=== PATIENT | female | born 1955 | race Caucasian/White ===

== ENCOUNTER → 2016-04-24 10:14 | Outpatient (CLI) | payer BC ==
[2016-04-24 12:14] LABS: BASOPHILS 0.3 % (0.0-2.0); EOSINOPHILS 1.5 % (0-7); HEMATOCRIT 43.3 % (36.0-48.0); HEMOGLOBIN 14.4 g/dL (12-16); IMMATURE GRANULOCYTES 0.1 % (0-5); LYMPHOCYTES 29.7 % (15-50); MCH 30.4 pg (26.0-34.0); MCHC 33.3 g/dL (31.0-37.0); MCV 91.4 fL (80.0-100.0); MEAN PLATELET VOLUME 11.5 fL (7.4-10.4); MONOCYTES 9.7 % (2-11); NEUTROPHILS 58.7 % (40-80); PLATELET COUNT 191 10x3/uL (130-400); RBC 4.74 10x6/uL (4.00-5.40); RDW 11.9 % (11.5-14.5); WBC 7.4 10x3/uL (4.8-10.8)
[2016-04-24 13:17] LABS: ALBUMIN 3.9 g/dL (3.4-5.0); ALKALINE PHOSPHATASE 72 U/L (46-116); ALT (SGPT) 52 U/L (10-68); BILIRUBIN - TOTAL 0.42 mg/dL (0.2-1.3); CALC OSMOLALITY 282 mosm/kg (275-300); CALCIUM 8.7 mg/dL (8.5-10.1); CARBON DIOXIDE 29.4 mmol/L (21.0-32.0); CHLORIDE - SERUM 104 mmol/L (98-107); CREATININE - SERUM 0.7 mg/dL (0.6-1.3); GLUCOSE 94 mg/dL (74-106); POTASSIUM - SERUM 4.5 mmol/L (3.5-5.1); SODIUM 141 mmol/L (136-145); UREA NITROGEN 19 mg/dL (7-18); eGFR NON AFRICAN AMERICAN 90 mL/min (90-120)
== END | disposition home or self-care (01) ==
LOC: EDBD 10:14 → D.RT 10:14
PROVIDERS: Internal Medicine Pulmonary Disease
DX: R06.09 Other forms of dyspnea (principal)

== ENCOUNTER → 2016-06-05 10:22 | Outpatient (CLI) | payer BC | END | disposition home or self-care (01) | LOC: D.CT 10:22 | DX: R59.0 Localized enlarged lymph nodes (principal) ==

== ENCOUNTER → 2016-09-26 15:38 | Outpatient (CLI) | payer BC | END | disposition home or self-care (01) | LOC: D.CT 09-25 17:00 | DX: R10.84 Generalized abdominal pain (principal); M79.672 Pain in left foot ==

== ENCOUNTER → 2017-02-15 08:21 | Outpatient (CLI) | payer BC ==
[2017-02-15 09:16] LABS: % SATURATION 30 % (15-55); IRON 86 ug/dl (35-150); TOTAL IRON BIND CAPACITY 283 ug/dl (260-445); UNSAT IRON BIND CAPACITY 197 ug/dl (150-375)
[2017-02-15 09:17] LABS: ALBUMIN 3.5 g/dL (3.4-5.0); BILIRUBIN - DIRECT 0.06 mg/dL (0.00-0.30); BILIRUBIN - INDIRECT 0.24 mg/dL (0.00-1.00); BILIRUBIN - TOTAL 0.3 mg/dL (0.2-1.3); PROTEIN - SERUM 6.8 g/dL (6.4-8.2)
[2017-02-16 08:17] LABS: ALPHA FETOPROTEIN -(TUMOR MRK) 4.9 ng/mL (0.0-8.3)
[2017-02-16 09:14] LABS: ANA REFLEX - DIRECT Negative (Negative)
[2017-02-19 16:07] LABS: SMOOTH MUSCLE ABS (ACTIN) 16 Units (0-19)
== END | disposition home or self-care (01) ==
LOC: D.LAB 08:21 → D.US 09:00
PROVIDERS: Internal Medicine Gastroenterology
DX: R94.5 Abnormal results of liver function studies (principal); R10.11 Right upper quadrant pain; Z98.890 Other specified postprocedural states

== ENCOUNTER → 2018-03-04 09:15 | Outpatient (CLI) | payer MEDICARE, OTHER | END | disposition home or self-care (01) | LOC: D.US 09:15 | DX: K76.0 Fatty (change of) liver, not elsewhere classified (principal) ==

== ENCOUNTER → 2018-05-07 07:00 | Outpatient (CLI) | payer MEDICARE, OTHER | END | disposition home or self-care (01) | LOC: D.RT 07:00 | PROVIDERS: ATTEND Internal Medicine Pulmonary Disease | DX: J45.909 Unspecified asthma, uncomplicated (principal); R59.0 Localized enlarged lymph nodes ==

== ENCOUNTER → 2018-08-27 09:56 | Outpatient (CLI) | payer MEDICARE, OTHER ==
[2018-08-27 11:30] LABS: ALBUMIN 3.8 g/dL (3.4-5.0); BILIRUBIN - DIRECT 0.13 mg/dL (0.00-0.30); BILIRUBIN - INDIRECT 0.38 mg/dL (0.00-1.00); BILIRUBIN - TOTAL 0.51 mg/dL (0.2-1.3); PROTEIN - SERUM 6.8 g/dL (6.4-8.2)
== END | disposition home or self-care (01) ==
LOC: D.US 08-19 11:00
PROVIDERS: ATTEND Internal Medicine Gastroenterology
DX: K76.0 Fatty (change of) liver, not elsewhere classified (principal)

== ENCOUNTER → 2019-02-17 08:05 | Outpatient (CLI) | payer MEDICARE, OTHER | END | disposition home or self-care (01) | LOC: D.HCCECHO 08:05 | PROVIDERS: ATTEND Internal Medicine Cardiovascular Disease | DX: I34.0 Nonrheumatic mitral (valve) insufficiency (principal) ==

== ENCOUNTER → 2019-03-03 09:46 | Outpatient (CLI) | payer MEDICARE, OTHER ==
[2019-03-03 10:26] LABS: ALBUMIN 3.9 g/dL (3.4-5.0); BILIRUBIN - DIRECT 0.08 mg/dL (0.00-0.30); BILIRUBIN - INDIRECT 0.38 mg/dL (0.00-1.00); BILIRUBIN - TOTAL 0.46 mg/dL (0.2-1.3); PROTEIN - SERUM 7.3 g/dL (6.4-8.2)
== END | disposition home or self-care (01) ==
LOC: D.LAB 09:46 → D.US 10:30
PROVIDERS: ATTEND Internal Medicine Gastroenterology
DX: K76.0 Fatty (change of) liver, not elsewhere classified (principal)

== ENCOUNTER → 2019-05-01 08:00 | Outpatient (CLI) | payer MEDICARE, OTHER | END | disposition home or self-care (01) | LOC: D.MAMMO 04-09 10:30 | PROVIDERS: ATTEND Surgery | DX: R59.0 Localized enlarged lymph nodes (principal) ==

== ENCOUNTER → 2019-09-08 08:54 | Outpatient (CLI) | payer MEDICARE, OTHER ==
[2019-09-08 09:49] LABS: ALBUMIN 3.9 g/dL (3.4-5.0); BILIRUBIN - DIRECT 0.1 mg/dL (0.00-0.30); BILIRUBIN - INDIRECT 0.36 mg/dL (0.00-1.00); BILIRUBIN - TOTAL 0.46 mg/dL (0.2-1.3); PROTEIN - SERUM 7.3 g/dL (6.4-8.2)
== END | disposition home or self-care (01) ==
LOC: D.US 08:54
PROVIDERS: ATTEND Internal Medicine Gastroenterology
DX: K76.0 Fatty (change of) liver, not elsewhere classified (principal)

== ENCOUNTER → 2020-06-04 09:28 | Outpatient (CLI) | payer MEDICARE, OTHER ==
[2020-06-04 10:14] LABS: ALBUMIN 3.7 g/dL (3.4-5.0); BILIRUBIN - DIRECT 0.09 mg/dL (0.00-0.30); BILIRUBIN - INDIRECT 0.26 mg/dL (0.00-1.00); BILIRUBIN - TOTAL 0.35 mg/dL (0.2-1.3); PROTEIN - SERUM 6.9 g/dL (6.4-8.2)
== END | disposition home or self-care (01) ==
LOC: D.US 05-21 08:45
PROVIDERS: ATTEND Internal Medicine Gastroenterology
DX: K76.0 Fatty (change of) liver, not elsewhere classified (principal)